=== PATIENT | female | born 1985 | race Caucasian/White ===

== ENCOUNTER → 2018-10-30 11:39 | Outpatient (CLI) | payer OTHER, SELFPAY ==
[2018-10-30 12:10] LABS: Appearance Urine UA CLEAR; Bilirubin Urine UA NEGATIVE (NEGATIVE); Color Urine UA YELLOW; Glucose Urine UA NEGATIVE (Negative); Ketones Urine UA NEGATIVE (NEGATIVE); Leukocyte Esterase Urine UA NEGATIVE (NEGATIVE); Nitrite Urine UA NEGATIVE (Negative); Occult Blood Urine UA NEGATIVE (Negative); Protein Urine UA NEGATIVE (Negative); Urobilinogen Urine UA 0.2 E.U./dL (0.2); pH Urine UA 5.5 (4.5-8.0)
[2018-10-30 12:22] LABS: Add Manual Diff / Slide Review NO; Basophils Absolute Auto 0 /uL (0-100); Basophils Percent Auto 0.3 % (0-2); Eosinophils Absolute Auto 200 /uL (0-450); Eosinophils Percent Auto 1.4 % (2-4); Hematocrit 39.3 % (36-46); Hemoglobin 13.7 g/dL (12.0-16.0); Lymphocytes Absolute Auto 2100 /uL (1100-4500); Lymphocytes Percent Auto 18.4 % (25-40); Mean Corpuscular HGB Conc 34.8 % (30-36); Mean Corpuscular Hemoglobin 31.7 PG (26-34); Mean Corpuscular Volume 90.9 fL (80-100); Monocytes Absolute Auto 800 /uL (0-900); Monocytes Percent Auto 6.7 % (3-14); Neutrophils Absolute Auto 8500 /uL (1500-7000); Neutrophils Percent Auto 73.2 % (50-75); Platelet Count 345 X10^3/uL (150-400); Red Blood Cell Count 4.32 X10^6/uL (4.0-5.2); Red Cell Distribution Width 12.3 % (11.6-14.8); White Blood Cell Count 11.7 X10^3/uL (4.5-11.0)
[2018-10-30 15:58] LABS: Hepatitis B Surface Antigen NEGATIVE s/c (NEGATIVE); Rubella Antibody IgG 22.1 IU/mL (>15)
[2018-10-30 16:28] LABS: HIV 1 & 2 Ab/Ag 4th Gen Combo NEGATIVE (NEGATIVE); Hep C Virus Ab w/Reflex Quant NEGATIVE s/c (NEGATIVE)
[2018-11-17 11:49] LABS: RPR Screen NONREACTIVE
== END ==
PROVIDERS: Visit Provider Specialist
DX: Z34.90 Encounter for supervision of normal pregnancy, unspecified, unspecified trimester (principal)
CPT/HCPCS: 36415; 80055; 81003; 86787; 86803; 86850; 86900; 86901; 87086; 87389

== ENCOUNTER → 2018-11-06 16:46 | Outpatient (CLI) | payer OTHER, SELFPAY ==
[2018-11-06 20:03] LABS: Urine N gonorrhoeae NOT DETECTED
[2018-11-06 20:17] LABS: Urine Chlamydia NOT DETECTED
== END ==
PROVIDERS: Visit Provider Specialist
DX: Z11.3 Encounter for screening for infections with a predominantly sexual mode of transmission (principal); Z3A.08 8 weeks gestation of pregnancy
CPT/HCPCS: 87491; 87591

== ENCOUNTER → 2018-12-07 10:46 | Outpatient (CLI) | payer OTHER, SELFPAY ==
[2018-12-13 12:40] LABS: AFP, Serum 55.9 ng/mL; Calc Gestational Age 16.7; Cigarette Smoker NO; Donated Egg N; Donor Egg Age NOT GIVEN; Estriol, Free 0.61 ng/mL; Inhibin A, Dimeric 120 pg/mL; Maternal Weight 174 lbs; Number of Fetuses 1; Previous Pregnancy Down Syndro N; hCG, MoM 0.73; hCG, Serum 19.9 IU/mL
== END ==
PROVIDERS: Visit Provider Specialist
DX: Z34.02 Encounter for supervision of normal first pregnancy, second trimester (principal); Z3A.16 16 weeks gestation of pregnancy
CPT/HCPCS: 36415; 82105; 82677; 84702; 86336

== ENCOUNTER → 2019-01-04 08:46 | Outpatient (CLI) | payer OTHER, SELFPAY ==
--- NOTE | 2019-01-04 08:48 | DI.US.S_ITS ---
PROCEDURE: US OB >= 14 WEEKS FETUS INDICATIONS: ANATOMY SCAN OUTSIDE/PRIOR DATING DATA: First dating scan (date and location): 11/06/18. Estimated date of delivery (LAURYN) from first dating scan: 05/23/19. TECHNIQUE: Real-time scanning was performed of the fetus, with image documentation and biometric measurements. Endovaginal scanning: No COMPARISON: None. FINDINGS: General: A single living intrauterine gestation is present. Presentation: Transverse. Placenta: Placental position is anterior, and low lying with the inferior margin 9 mm above the internal cervical os Amniotic fluid index: 12.0 cm, normal range is 5-24 cm. heart rate: 153 beats per minute. Maternal cervical canal: 3.1 cm long. Normal lower limit is 2.5 cm. biometrics: Biparietal diameter: 20 Head circumference: 21 weeks 0 days Abdominal circumference: 20 weeks 1 day Femur length: 21 weeks 1 day Estimated gestational age from initial scan: 20 weeks 1 day Composite gestational age from present scan: 20 weeks 4 days Estimated weight and percentile: 365 g; 72nd percentile Measurement variability for biometric dating: +/- 7 days from 14 weeks to 15 weeks 6 days gestation, +/- 10 days from 16 weeks to 21 weeks 6 days gestation, +/- 2 weeks from 22 weeks to 27 weeks 6 days gestation, +/- 3 weeks for 28 weeks gestation or later. weight reference: 4500 g or EFW >90/95% is considered macrosomia or large for gestational age. EFW <10% is small for gestational age. EFW 5% or less is considered intra-uterine growth restriction. Anatomic survey: Neuro: Ventricles are non-dilated at less than 10 mm. Cisterna magna is normal at 3-11 mm. Cerebellum is normal in size and morphology. Nuchal skin fold: Normal at less than 6 mm between 14-21 weeks gestational age. Face: Nose and lips, facial profile are normal. Spine: Not well-visualized. Heart: 4-chambered heart is present, with normal ventricular outflow tracts. Diaphragm: Diaphragm is intact. Stomach: Left-sided stomach is present. Kidneys: No hydronephrosis. Normal is less than 5 mm in 2nd trimester, less than 7 mm in 3rd trimester. Cord: 3-vessel cord has orthotopic insertion. Bladder: Normal in size. Extremities: All 4 extremities identified. IMPRESSION: 1. Single living IUP redemonstrated and interval growth is normal. 2. spine not well visualized; otherwise normal anatomy. 3. Low lying placenta. Followup recommended. Dictated by: John PEDROZA Interpreted: Migdalia Harden MD on 01/04/2019 at 10:41 Approved by: Migdalia Harden MD, PhD on 01/04/2019 at 11:36
== END ==
PROVIDERS: Visit Provider Specialist
DX: Z34.02 Encounter for supervision of normal first pregnancy, second trimester (principal); Z3A.20 20 weeks gestation of pregnancy
CPT/HCPCS: 76811

== ENCOUNTER → 2019-01-13 07:43 | Outpatient (CLI) | payer OTHER, SELFPAY ==
--- NOTE | 2019-01-13 07:47 | DI.US.S_ITS ---
PROCEDURE: US OB FOLLOW UP INDICATIONS: RE-EVALUATE SPINE OUTSIDE/PRIOR DATING DATA: First dating scan (date and location): 11/06/18. Estimated date of delivery (LAURYN) from first dating scan: 05/23/19. TECHNIQUE: Real-time scanning was performed of the fetus, with image documentation and biometric measurements. Endovaginal scanning: No COMPARISON: [facility], , OB >= 14 WEEKS FETUS, 01/04/2019, 9:06. FINDINGS: General: A single living intrauterine gestation is present. Presentation: Breech. Placenta: Placental position is anterior, and low lying with the inferior margin of the placenta approximately 1.4 cm above the internal cervical os. Amniotic fluid index: 14.3 cm, normal range is 5-24 cm. heart rate: 139 beats per minute. Maternal cervical canal: 3.3 cm long. Normal lower limit is 2.5 cm. Normal spine. IMPRESSION: 1. Single living IUP redemonstrated and the spine appears normal on today's examination. 2. Low lying placenta. Followup recommended. Dictated by: John Nina [facility] Interpreted: Vito Zheng MD on 01/13/2019 at 9:33 Approved by: Vito Zheng M.D. on 01/13/2019 at 15:38
== END ==
PROVIDERS: Visit Provider Specialist
DX: O44.42 Low lying placenta NOS or without hemorrhage, second trimester (principal); Z3A.20 20 weeks gestation of pregnancy
CPT/HCPCS: 76816

== ENCOUNTER → 2019-02-02 09:22 | Outpatient (CLI) | payer OTHER, SELFPAY ==
[2019-02-02 11:40] LABS: GTT (PREG) 1 Hour PP 50gm Dose 154 mg/dL (76-139)
[2019-02-02 11:46] LABS: Hematocrit 35.5 % (36-46); Hemoglobin 12.2 g/dL (12.0-16.0)
== END ==
PROVIDERS: Visit Provider Specialist
DX: O26.899 Other specified pregnancy related conditions, unspecified trimester (principal); Z34.02 Encounter for supervision of normal first pregnancy, second trimester; Z67.91 Unspecified blood type, Rh negative
CPT/HCPCS: 36415; 82950; 85014; 85018; 86850

== ENCOUNTER → 2019-02-05 07:19 | Outpatient (CLI) | payer OTHER, SELFPAY ==
[2019-02-05 09:00] LABS: Glucose Fasting Gestational 80 mg/dL (76-95)
[2019-02-05 09:26] LABS: Glucose 1 Hour Gest 174 mg/dL (76-180)
[2019-02-05 10:36] LABS: Glucose Tol Interp,Gestational INTERPRETATION
[2019-02-05 10:55] LABS: Glucose 2 Hour Gest 147 mg/dL (76-155)
[2019-02-05 11:33] LABS: Glucose 3 Hour Gest 126 mg/dL (76-140)
== END ==
PROVIDERS: Visit Provider Specialist
DX: Z34.92 Encounter for supervision of normal pregnancy, unspecified, second trimester (principal); R73.09 Other abnormal glucose
CPT/HCPCS: 36415; 82951; 82952

== ENCOUNTER 2019-04-08 00:12 | Inpatient (IN) | payer OTHER, SELFPAY ==
--- NOTE | 2019-04-08 00:47 | PM.OBHP.1 ---
OB HPI History of Present Condition Chief complaint: evaluation of labor Narrative: Betina Mendiola is a 33 year old female @ [id number] by LMP and early US who presents w/ PPROM. +FM. feeling uncomfortable cramping. No VB. Large gushes of fluid has been clear. Routine PN care w/ Dr.Nadine Barrett. Evaluation Evaluation Baseline heart rate: 140 Variability: Moderate (11-25) monitor accelerations: Present monitor decelerations: Absent Contraction Frequency (minutes): 3 Uterine Contraction Intensity: Mild Category of Tracing: I Cervical dilation (cm): 1 Cervical effacement (%): 80 station: -3 Laboratory results: AmniSure positive Non-invasive Membranes Rupture Test: positive [facility] Medical History Abnormal Pap smear of cervix (Inactive ~2004) Human papilloma virus (Inactive ~2004) Surgical History Anesthesia (Resolved) H/O LEEP (Resolved ~2007) History of myringotomy (Resolved ~1994) History of surgery (Resolved ~1996) [place] teeth removed (Resolved ~2003) Meds Home Medications and Allergies Allergies Allergy/AdvReac Type Severity Reaction Status Date / Time Sulfa (Sulfonamide Allergy Intermediate rash in Verified 04/08/19 01:15 Antibiotics) childhood Review of Systems Review of Systems ROS Unobtainable: All systems reviewed & are unremarkable except as noted in HPI and below Exam Vital Signs (past 8 hours): BP-128/82 HR-76, T36.2 Narrative Exam Narrative: Calm respirations, no change in breathing or facial expressions with contractions. External Female Exam: external appearance normal OB/External & Speculum: deferred Manual OB Exam: dilated 1, effaced 75% and station high Presentation: vertex Amniotic Fluid: clear Assessment and Plan Assessment and Plan Assessment and Plan narrative: Admit for PPROM and transfer to [facility]. Counseled patient and her on recommendation for transfer to facility with NICU capability. Routine admit orders w/ antibioitcs, betamethasone and MgSO4 for neuroprotection, approved by . Will give PCN as it is ready on the unit and amp/erythromycin would likely not arrive from pharmacy prior to transfer. associate account director Shivani and OB Hospitalist called and accepted transfer of care. Ambulance dispatch has been called w/ STAT transfer requested, as [facility] ETA to arrival here is >1.5 hours, will arrange air transport through [facility]. Time Spent with Patient Total time spent with greater than 50% in coordination of care (as documented) at patient's floor/unit and/or counseling patient:: 25 - 35 minutes
[2019-04-08] MEDS: PENICILLIN G POTASSIUM 5,000,000 UNIT in DEXTROSE 5% IN WATER 250 ML IV (01:19)
[2019-04-08] MEDS: LACTATED RINGERS 1,000 ML 150 ML IV (01:20)
[2019-04-08] MEDS: BETAMETHASONE 30 MG/5 ML MDV 12 MG IM (01:20)
[2019-04-08] MEDS: MAGNESIUM SULFATE 4 GM/100 ML PIGGYBACK IV (01:36)
[2019-04-08 01:40] LABS: Add Manual Diff / Slide Review NO; Basophils Absolute Auto 100 /uL (0-100); Basophils Percent Auto 0.4 % (0-2); Eosinophils Absolute Auto 200 /uL (0-450); Eosinophils Percent Auto 1.2 % (2-4); Hematocrit 35.2 % (36-46); Hemoglobin 12.4 g/dL (12.0-16.0); Lymphocytes Absolute Auto 3300 /uL (1100-4500); Lymphocytes Percent Auto 17.5 % (25-40); Mean Corpuscular HGB Conc 35.2 % (30-36); Mean Corpuscular Hemoglobin 31.7 PG (26-34); Mean Corpuscular Volume 90.1 fL (80-100); Monocytes Absolute Auto 1400 /uL (0-900); Monocytes Percent Auto 7.5 % (3-14); Neutrophils Absolute Auto 13800 /uL (1500-7000); Neutrophils Percent Auto 73.4 % (50-75); Platelet Count 378 X10^3/uL (150-400); Red Cell Distribution Width 12.3 % (11.6-14.8); White Blood Cell Count 18.8 X10^3/uL (4.5-11.0)
[2019-04-08 01:49] LABS: Strep Grp B PCR NEG for Grp B Strep
[2019-04-08] MEDS: MAGNESIUM SULFATE 20 GM/500 ML IV.SOLN IV (02:00)
[2019-04-08] MEDS: AZITHROMYCIN 250 MG TABLET 1000 MG PO (02:56)
--- NOTE | 2019-04-08 03:16 | PM.OBDS.1 ---
Discharge Providers Provider Date of admission: 04/08/19 00:12 Discharge Date: 04/08/19 Discharge provider: Kelle Humphrey CNM Summary Hospital Course Date Patient Seen: 04/08/19 Time Patient Seen: 03:18 Hospital Course: PPROM, clear fluid, was confirmed and patient was admitted, IV and labs (Rapid GBS, CBC, T&S) completed, antibiotics, betamethasone and MgSO4 were given. CE 1.5/-3. [facility] accepted transfer of care () and transport was called. Initially, ground transport was estimated at 1.5 hours so air transport was requested and denied for weather. Request for ground transport was then completed. Pt has been able to rest, but not sleep, reporting occasional uncomfortable contractions, not breathing through them yet. Repeat CE at time of ground transport arrival 1./-2. direct support specialist Shelly @ [facility] was notified of ETA and bed 303 was assigned. Meds: IV PCN 5million units, PO azithrymycin 1g, betamethasone 12mg IM, MgSO4 4gram load then 2grams continuous Discharge Diagnosis (1) premature rupture of membranes (PPROM) delivered, current hospitalization: Start Date: 04/07/19 Start Time: 23:30 Status: Acute (2) 33 weeks gestation of : Start Date: 04/08/19 Status: Acute Status at Discharge Cognitive/behavioral status at discharge: oriented Functional status at discharge: independent ambulation (recommend minimal ambulation w/ Medical staff in attendance) Overall status at discharge: patient is progressing back to baseline Time Spent with Patient Time attestation: Total time spent providing and/or coordinating discharge services: Time spent: Greater than 30 minutes Objective Labs Result Diagrams: 04/08/19 00:50 Labs: Laboratory Results - last 24 hr 04/08/19 04/08/19 04/08/19 00:40 00:50 00:50 WBC 18.8 H RBC 3.90 L Hgb 12.4 Hct 35.2 L MCV 90.1 MCH 31.7 MCHC 35.2 RDW 12.3 Plt Count 378 Neut % (Auto) 73.4 Lymph % (Auto) 17.5 L [place] % (Auto) 7.5 Eos % (Auto) 1.2 L Baso % (Auto) 0.4 Neut # (Auto) 54444 H Lymph # (Auto) 3300 [place] # (Auto) 1400 H Eos # (Auto) 200 Baso # (Auto) 100 Group B Strep (PCR) Neg for grp b strep Blood Type AB Negative Antibody Screen Positive Antibody Identification Anti-D Exam Vital Signs (past 8 hours): BP 117/56, HR69, T36.6C, SpO2-100% Const General: cooperative Nutritional Appearance: average body habitus and well nourished Orientation: alert, awake and oriented x3 Resp Effort & Inspection: normal respiratory effort Manual OB Exam: dilated (1.5cm), effaced (90%), station -2 and other Presentation: vertex Amniotic Fluid: clear Discharge Plan Discharge Plan Disposition: [facility] Hospital Discharge Data Attending Provider: Leisa Barrett Admit Date/Time: 04/08/19 00:12
== END 2019-04-08 03:25 | disposition short-term general hospital (02) | DRG 833 ==
PROVIDERS: Nurse Practitioner Obstetrics & Gynecology; Admitting Provider Specialist; Visit Provider Specialist
DX: O42.013 Preterm premature rupture of membranes, onset of labor within 24 hours of rupture, third trimester (principal); Z3A.33 33 weeks gestation of pregnancy
CPT/HCPCS: 59025; 59050; 84112; 85025; 86850; 86870; 86900; 86901; 87081; 87653; 96360; 96372; G0378; G0379; J0702; J2540; J3475

== ENCOUNTER → 2020-06-09 12:15 | Outpatient (CLI) | payer OTHER, SELFPAY ==
[2020-06-09] MEDS: COVID-19 VACC #1, MRNA(MOD) 100 MCG/0.5 ML VIAL IM (12:24)
== END ==
PROVIDERS: Visit Provider Internal Medicine
DX: Z23 Encounter for immunization (principal)
CPT/HCPCS: 0011A; 91301

== ENCOUNTER → 2020-07-11 10:27 | Outpatient (CLI) | payer OTHER, SELFPAY ==
[2020-07-11 11:13] LABS: Add Manual Diff / Slide Review NO; Basophils Absolute Auto 0 /uL (0-100); Basophils Percent Auto 0.4 % (0-2); Eosinophils Absolute Auto 200 /uL (0-450); Eosinophils Percent Auto 2.3 % (2-4); Hematocrit 38.5 % (36-46); Hemoglobin 13.6 g/dL (12.0-16.0); Lymphocytes Absolute Auto 2000 /uL (1100-4500); Mean Corpuscular HGB Conc 35.3 % (30-36); Mean Corpuscular Hemoglobin 32.5 PG (26-34); Mean Corpuscular Volume 92.1 fL (80-100); Monocytes Absolute Auto 700 /uL (0-900); Monocytes Percent Auto 7.7 % (3-14); Neutrophils Absolute Auto 5700 /uL (1500-7000); Neutrophils Percent Auto 66.6 % (50-75); Platelet Count 289 X10^3/uL (150-400); Red Blood Cell Count 4.18 X10^6/uL (4.0-5.2); Red Cell Distribution Width 12.6 % (11.6-14.8); White Blood Cell Count 8.5 X10^3/uL (4.5-11.0)
[2020-07-11 11:26] LABS: Hemoglobin A1C% w Est Avg Glu 4.7 % (4.0-6.0)
[2020-07-11 11:28] LABS: Appearance Urine UA CLEAR; Bilirubin Urine UA NEGATIVE (NEGATIVE); Color Urine UA YELLOW; Glucose Urine UA NEGATIVE (Negative); Ketones Urine UA NEGATIVE (NEGATIVE); Leukocyte Esterase Urine UA NEGATIVE (NEGATIVE); Nitrite Urine UA NEGATIVE (Negative); Occult Blood Urine UA NEGATIVE (Negative); Protein Urine UA NEGATIVE (Negative); Specific Gravity Urine UA 1.025 (1.000-1.035); Urobilinogen Urine UA 0.2 E.U./dL (0.2)
[2020-07-11 12:25] LABS: Hepatitis B Surface Antigen NEGATIVE s/c (NEGATIVE); Rubella Antibody IgG 14.7 IU/mL (>15)
[2020-07-11 12:50] LABS: HIV 1 & 2 Ab/Ag 4th Gen Combo NEGATIVE (NEGATIVE); Hep C Virus Ab w/Reflex Quant NEGATIVE s/c (NEGATIVE)
[2020-07-12 06:35] LABS: RPR Screen Non Reactive (Non Reactive)
[2020-07-12 10:48] LABS: Varicella IgG Antibody 1366 index (Immune >165)
== END ==
PROVIDERS: Referring Provider Specialist; Visit Provider Specialist
DX: Z34.81 Encounter for supervision of other normal pregnancy, first trimester (principal)
CPT/HCPCS: 36415; 80055; 81003; 83036; 86787; 86803; 86850; 86900; 86901; 87086; 87389

== ENCOUNTER → 2020-07-12 11:59 | Outpatient (CLI) | payer OTHER, SELFPAY ==
[2020-07-12] MEDS: COVID-19 VACC #2, MRNA(MOD) 100 MCG/0.5 ML VIAL IM (12:06)
== END ==
PROVIDERS: Visit Provider Internal Medicine
DX: Z23 Encounter for immunization (principal)
CPT/HCPCS: 0012A; 91301

== ENCOUNTER → 2020-10-11 09:15 | Outpatient (CLI) | payer OTHER, SELFPAY ==
--- NOTE | 2020-10-11 09:16 | DI.US.S_ITS ---
PROCEDURE: US OB >= 14 WEEKS FETUS INDICATIONS: ANATOMY OUTSIDE/PRIOR DATING DATA: First dating scan (date and location): 08/08/2020 . Estimated date of delivery (LAURYN) from first dating scan: 02/19/2021 . TECHNIQUE: Real-time scanning was performed of the fetus, with image documentation and biometric measurements. Endovaginal scanning: No COMPARISON: [facility], OB <= 14 WEEKS FETUS, 08/08/2020, 10:21. [facility], OB >= 14 WEEKS FETUS, 03/08/2019, 9:28. FINDINGS: General: A single living intrauterine gestation is present. Presentation: Vertex. Placenta: Placental position is anterior , without previa. Amniotic fluid index: 16.7 cm, normal range is 5-24 cm. heart rate: 162 beats per minute. Maternal cervical canal: 4.3 cm long. Normal lower limit is 2.5 cm. biometrics: Biparietal diameter: 21 weeks 4 days Head circumference: 21 weeks 1 day Abdominal circumference: 22 weeks 3 days Femur length: 21 weeks 1 day Estimated gestational age from initial scan: 21 weeks 2 days Composite gestational age from present scan: 21 weeks 4 days Estimated weight and percentile: 446 g; 68th percentile Measurement variability for biometric dating: +/- 7 days from 14 weeks to 15 weeks 6 days gestation, +/- 10 days from 16 weeks to 21 weeks 6 days gestation, +/- 2 weeks from 22 weeks to 27 weeks 6 days gestation, +/- 3 weeks for 28 weeks gestation or later. weight reference: 4500 g or EFW >90/95% is considered macrosomia or large for gestational age. EFW <10% is small for gestational age. EFW 5% or less is considered intra-uterine growth restriction. Anatomic survey: Neuro: Ventricles are non-dilated at less than 10 mm. Cisterna magna is normal at 3-11 mm. Cerebellum is normal in size and morphology. Nuchal skin fold: Normal at less than 6 mm between 14-21 weeks gestational age. Face: Nose and lips, facial profile are normal. Spine: No evidence for spina bifida. Heart: 4-chambered heart is present, with normal ventricular outflow tracts. Diaphragm: Diaphragm is intact. Stomach: Left-sided stomach is present. Kidneys: No hydronephrosis. Normal is less than 5 mm in 2nd trimester, less than 7 mm in 3rd trimester. Cord: 3-vessel cord has orthotopic insertion. Bladder: Normal in size. Extremities: All 4 extremities identified. IMPRESSION: 1. Single living IUP redemonstrated and interval growth is normal. 2. Normal anatomic survey. Dictated by: John PEDROZA Interpreted: Cory Nevarez MD on 10/11/2020 at 10:30 Transcribed by: JESUS on 10/11/2020 at 10:32 Approved by: Cory Nevarez M.D. on 10/11/2020 at 11:20
== END ==
PROVIDERS: Referring Provider Specialist; Visit Provider Specialist
DX: Z34.82 Encounter for supervision of other normal pregnancy, second trimester (principal); Z3A.21 21 weeks gestation of pregnancy
CPT/HCPCS: 76811; 76817

== ENCOUNTER → 2020-11-21 07:55 | Outpatient (CLI) | payer OTHER, SELFPAY ==
[2020-11-21 09:46] LABS: Hematocrit 37.1 % (36-46); Hemoglobin 12.7 g/dL (12.0-16.0)
[2020-11-21 10:46] LABS: GTT (PREG) 1 Hour PP 50gm Dose 84 mg/dL (76-139)
== END ==
PROVIDERS: Referring Provider Specialist; Visit Provider Specialist
DX: O26.899 Other specified pregnancy related conditions, unspecified trimester (principal); Z67.91 Unspecified blood type, Rh negative; Z3A.26 26 weeks gestation of pregnancy
CPT/HCPCS: 36415; 82950; 85014; 85018; 86850

== ENCOUNTER 2021-01-30 13:37 | Outpatient (CLI) | payer OTHER, SELFPAY ==
--- NOTE | 2021-01-30 15:07 | PM.OBTRLD ---
Visit Information Visit Information Date of evaluation: 01/30/21 Primary OB Provider: Leisa Barrett Reason for Evaluation: Yes rupture of membranes Vital Signs Vital Signs: Blood pressure 110/68, pulse 80, temperature 96.4? [facility] Medical History (Updated 01/30/21 @ 15:09 by Leisa Barrett MD) Abnormal Pap smear of cervix (~2004) Bronchitis (~2010) Human papilloma virus (~2004) Pneumonia (~2010) premature rupture of membranes (PPROM) delivered, current hospitalization (04/10/19) UTI (urinary tract infection) (~2009) Surgical History (Updated 06/29/20 @ 09:20 by Edith Stauffer RN) Anesthesia H/O LEEP (~2004) History of myringotomy (~1994) History of surgery (~1996) [place] teeth removed (~2003) Family History (Updated 06/29/20 @ 15:07 by Edith Stauffer RN) Mother Asthma Hyperlipidemia Father Diabetes mellitus Dementia Depression Bipolar 1 disorder Anxiety Grandmother Dementia Neuropathy, lower extremity Grandfather S/P triple vessel bypass Hypertension Hyperlipidemia Grandmother Alzheimer's disease Grandfather No problems noted. Social History marital status: number of children: 1 household members: spouse and children lives independently: Yes caregiver/support person: No housing: house pets and animals: Yes (2 dogs: safe & aware. ) education level: college (Bachelor's pre-Nursing. 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 ) do you feel safe at home: Yes Smoking Status: Former smoker quit status: has quit before second hand exposure: No alcohol intake: former (Pre-: occasional/social ) substance use type: does not use during the past year weight has: remained stable well-balanced diet: daily or most days daily servings fruits/ve-4 caffeine: Yes (Occasionally 1 cup of coffee every 2-3 weeks. ) Type(s) of exercise: regular exercise (Does zoom exercises with friends. ) and running (Does a 5K on her glider a couple times a week. ) frequency: 5-6 times per week duration: 30-45 minutes/day Review of Systems Review of Systems Narrative: Patient with no contractions but concern for possible rupture membranes with constant wetness feeling. Good movement. ROS: Yes All systems reviewed with the patient and are negative except as otherwise documented Evaluation Evaluation Baseline heart rate: 120 Variability: Moderate (11-25) monitor accelerations: Present Monitor Decelerations: Absent Contraction Frequency (minutes): 0 Category of Tracing: Reactive Status: Category l Non-invasive Membranes Rupture Test: negative Diagnosis, Plan/Disposition Final Diagnosis (1) False labor before 37 completed weeks of gestation during in third trimester, antepartum: Status: Acute (2) 36 weeks gestation of : Status: Acute Plan/Disposition Plan: Patient with negative testing for rupture membranes. No contractions. Patient reassured. Keep her routine OB appointment. OB Disposition: home
== END 2021-01-30 15:09 | disposition home or self-care (01) ==
LOC: LABOR 14:23 → OB 01-31 07:12
PROVIDERS: PCP Specialist; Referring Provider Specialist; Visit Provider Specialist
DX: Z03.71 Encounter for suspected problem with amniotic cavity and membrane ruled out (principal); O47.03 False labor before 37 completed weeks of gestation, third trimester; Z3A.36 36 weeks gestation of pregnancy
CPT/HCPCS: 59025; 84112; G0378; G0379

== ENCOUNTER → 2021-02-06 14:38 | Outpatient (CLI) | payer OTHER, SELFPAY ==
[2021-02-08 09:00] LABS: Strep Grp B PCR NEG for Grp B Strep
== END ==
PROVIDERS: PCP Specialist; Referring Provider Specialist; Visit Provider Specialist
DX: Z34.83 Encounter for supervision of other normal pregnancy, third trimester (principal); Z3A.37 37 weeks gestation of pregnancy
CPT/HCPCS: 87653

== ENCOUNTER 2021-02-19 05:24 | Inpatient (IN) | payer OTHER, SELFPAY ==
[2021-02-19 06:30] VITALS: BP 104/55
[2021-02-19 06:40] LABS: Add Manual Diff / Slide Review NO; Basophils Absolute Auto 100 /uL (0-100); Basophils Percent Auto 0.4 % (0-2); Eosinophils Absolute Auto 100 /uL (0-450); Hematocrit 40.1 % (36-46); Hemoglobin 13.8 g/dL (12.0-16.0); Lymphocytes Absolute Auto 2700 /uL (1100-4500); Lymphocytes Percent Auto 19.1 % (25-40); Mean Corpuscular HGB Conc 34.3 % (30-36); Mean Corpuscular Hemoglobin 30.3 PG (26-34); Mean Corpuscular Volume 88.3 fL (80-100); Monocytes Absolute Auto 1000 /uL (0-900); Neutrophils Absolute Auto 10100 /uL (1500-7000); Neutrophils Percent Auto 72.5 % (50-75); Platelet Count 354 X10^3/uL (150-400); Red Blood Cell Count 4.54 X10^6/uL (4.0-5.2); Red Cell Distribution Width 13.1 % (11.6-14.8)
[2021-02-19 08:08] LABS: COVID19 -Nasal RAPID Negative (Negative)
--- NOTE | 2021-02-19 09:41 | P.HPOB_ITS ---
OB HPI Date/Time Date of admission: 02/19/21 Date Patient Seen: 02/19/21 Time Patient Seen: 09:41 History of Present Condition Chief complaint: OBS : 2 Para: 1 Estimated Date of Delivery: 02/26/21 Estimated Gestational Age (weeks): 39 Narrative: Betina Mendiola is a 35 year old female admitted in active labor History of Present care: good care, initiated at week # (7), number of visits (11) and pounds weight gain (26) Dating criteria: LMP confirmed by 1st trimester US Ultrasounds: normal mid trimester US Obstetrical complications: none Medical complications: none Preadmission Labs Blood type: AB (-) negative -: Antibody screen: negative, GBS status: negative, HBsAG: negative, HIV: negative and RPR/VDLR: negative -: Chlamydia screen: not detected and Gonorrhea screen: not detected -: Rubella: not immune and Varicella: immune HCAB: negative Quad screen: Normal 1 hr GTT: 84 Prior (ies) History: 04/10/2019 pprom with delivery at 33.6 weeks 5 lb 10 oz female Evaluation Evaluation Baseline heart rate: 130 Variability: Moderate (11-25) monitor accelerations: Present Monitor Decelerations: Absent Uterine Contraction Intensity: Mild Category of Tracing: Reactive Status: Category l Dilation (cm): 10 Effacement (%): 100 station: 0 PFSH Medical History (Updated 02/06/21 @ 12:16 by Leisa Barrett MD) Abnormal Pap smear of cervix (~2004) Bronchitis (~2010) Human papilloma virus (~2004) Pneumonia (~2010) premature rupture of membranes (PPROM) delivered, current hospitalization (04/10/19) UTI (urinary tract infection) (~2009) Surgical History (Updated 06/29/20 @ 09:20 by Edith Stauffer RN) Anesthesia H/O LEEP (~2004) History of myringotomy (~1994) History of surgery (~1996) [place] teeth removed (~2003) Family History (Updated 06/29/20 @ 15:07 by Edith Stauffer RN) Mother Asthma Hyperlipidemia Father Diabetes mellitus Dementia Depression Bipolar 1 disorder Anxiety Grandmother Dementia Neuropathy, lower extremity Grandfather S/P triple vessel bypass Hypertension Hyperlipidemia Grandmother Alzheimer's disease Grandfather No problems noted. Social History marital status: number of children: 1 household members: spouse and children lives independently: Yes caregiver/support person: No housing: house pets and animals: Yes (2 dogs: safe & aware. ) education level: college (Bachelor's pre-Nursing. 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 ) do you feel safe at home: Yes Smoking Status: Former smoker quit status: has quit before second hand exposure: No alcohol intake: former (Pre-: occasional/social ) substance use type: does not use during the past year weight has: remained stable well-balanced diet: daily or most days daily servings fruits/ve-4 caffeine: Yes (Occasionally 1 cup of coffee every 2-3 weeks. ) Type(s) of exercise: regular exercise (Does zoom exercises with friends. ) and running (Does a 5K on her glider a couple times a week. ) frequency: 5-6 times per week duration: 30-45 minutes/day Meds Home Medications and Allergies Home Medications Medication Instructions Recorded Confirmed Type prenat.vits,kane,jtq-[id number] 1 tab PO DAILY 05/17/19 02/19/21 History ondansetron 4 mg disintegrating 4 mg PO Q6H PRN #20 tab 07/10/20 02/19/21 Rx tablet omeprazole 40 mg capsule,delayed 40 mg PO DAILY #30 cap 11/16/20 02/19/21 Rx release Allergies Allergy/AdvReac Type Severity Reaction Status Date / Time annalise Allergy Intermediate Itchy Verified 06/29/20 09:06 throat & tongue goes numb Sulfa (Sulfonamide Allergy Intermediate rash in Verified 06/29/20 09:06 Antibiotics) childhood tree and shrub pollen Allergy Intermediate Itchy Verified 06/29/20 09:06 eyes, runny nose, sneezing Review of Systems Review of Systems Narrative: Patient denies headaches, scotomata, epigastric pain. She had rupture of membranes shortly after arrival Labor and delivery about 6:30 a.m. OB Exam Narrative Exam Narrative: Blood pressure 104/55, pulse of 54, temperature 96.3? Objective Labs Result Diagrams: 02/19/21 05:30 Labs: Laboratory Results - last 24 hr 02/19/21 02/19/21 02/19/21 05:30 05:30 05:45 WBC 14.0 H RBC 4.54 Hgb 13.8 Hct 40.1 MCV 88.3 MCH 30.3 MCHC 34.3 RDW 13.1 Plt Count 354 Neut % (Auto) 72.5 Lymph % (Auto) 19.1 L [place] % (Auto) 7.0 Eos % (Auto) 1.0 L Baso % (Auto) 0.4 Neut # (Auto) 99976 H Lymph # (Auto) 2700 [place] # (Auto) 1000 H Eos # (Auto) 100 Baso # (Auto) 100 SARS-CoV-2 (PCR) Negative Blood Type AB Negative Antibody Screen Negative Assessment and Plan Assessment and Plan Assessment and Plan narrative: 39 week gestation in active labor. Patient received an epidural catheter for pain control. Anticipate vaginal delivery.
--- NOTE | 2021-02-19 11:33 | PM.OBPRVD ---
Labor & Delivery Delivery date: 02/19/21 Cervical ripening method: none Induction method: none Delivery monitor: external FHT and external uterine Route of delivery: L&D Laceration Description: Perineal - 2nd Degree Delivery repair: chromic (3 0) Estimated blood loss (mL): 150 Anesthesia Type: Epidural Narrative: Patient arrived on Labor and delivery in active labor. She received an epidural catheter for pain control. She progressed normally to complete pushing. With pushing heart tones had intermittent variables that responded to position change, O2, IV fluid bolus. The baby delivered spontaneously, over an intact perineum. A nuchal cord was released. The viable male was placed on maternal abdomen. After cord stopped pulsating the cord was clamped, cut, and cord bloods obtained. The placenta delivered spontaneously, intact, 3 vessels. There were no cervical or vaginal tears. A second-degree vaginal tear was repaired with 3 0 chromic suture in the usual 2 layer fashion. Both infant and mother doing well. Baby 1: gender: Male Presentation: vertex Position: Right Occiput Anterior Placenta delivery description: Spontaneous Cord Vessel Description: Nuchal Cord score (1 min): 9 score (5 min): 9 Plan for aftercare: Routine care
[2021-02-19] MEDS: IBUPROFEN 600 MG TABLET PO ×2 (13:01→19:56)
[2021-02-19] MEDS: DERMOPLAST SPRAY 20% 60 ML 1 SPRAY TOP (13:02)
[2021-02-19] MEDS: ACETAMINOPHEN 325 MG TABLET 650 MG PO (14:40)
[2021-02-19] MEDS: LANOLIN OINT 7 GM 1 APPLIC TOP (19:55)
[2021-02-20] MEDS: ACETAMINOPHEN 325 MG TABLET 650 MG PO ×3 (01:36→13:25)
[2021-02-20] MEDS: IBUPROFEN 600 MG TABLET PO ×3 (01:37→13:25)
[2021-02-20 06:51] LABS: Hematocrit 34.9 % (36-46); Hemoglobin 11.7 g/dL (12.0-16.0)
[2021-02-20] MEDS: DOCUSATE 100 MG CAPSULE PO (10:13)
--- NOTE | 2021-02-20 13:01 | PM.OBDS.1 ---
Discharge Providers Provider Date of admission: 02/19/21 05:24 Discharge Date: 02/20/21 Consults: 02/19/21 06:14 Consult to Anesthesiology Urgent Comment: Consulting Provider: Anesthesiologist Reason for consultation: Epidural Has provider been notified: No 02/20/21 11:31 Consult to Brake Repair Mechanic Routine Comment: Discharge provider: Leisa Barrett MD Summary Hospital Course Date Patient Seen: 02/20/21 Time Patient Seen: 13:02 Diagnoses: Spontaneous vaginal delivery with repair of second-degree tear Hospital Course: Patient arrived on Labor and delivery in active labor. She received an epidural catheter for pain control. She delivered spontaneously and had a 2nd degree perineal repair. Peripartum Data Infant Delivery Method: Natural Vaginal Laceration Description: Perineal - 2nd Degree Procedures: Epidural catheter, spontaneous vaginal delivery, repair of second-degree tear complications: none [place] 1: Gender: Male Disposition of : home Discharge Diagnosis (1) Vaginal delivery: Status: Acute Status at Discharge Cognitive/behavioral status at discharge: oriented Functional status at discharge: independent ambulation Overall status at discharge: patient is progressing back to baseline Time Spent with Patient Time attestation: Total time spent providing and/or coordinating discharge services: Time spent: Less than 30 minutes Objective Labs Result Diagrams: 02/20/21 06:35 Labs: Laboratory Results - last 24 hr 02/20/21 02/20/21 06:35 06:35 Hgb 11.7 L Hct 34.9 L Maternal Bleed Negative Exam Vital Signs (past 8 hours): Blood pressure 116/79, pulse 77, temperature 98.5? Narrative Exam Narrative: Abdomen is soft, nontender. Uterus is firm, at U, nontender. Repair is intact. Mild lochia. Extremities without edema and nontender. Discharge Plan Discharge Plan Patient Disposition: Home Discharge orders & Medications Prescriptions: Continued prenat.vits,kane,[id number] Tablet 1 tab PO DAILY 0RF Discontinued ondansetron 4 mg tablet,disintegrating 4 mg PO Q6H PRN (Reason: nausea and vomiting) Qty: 20 0RF omeprazole 40 mg capsule,delayed release(DR/EC) 40 mg PO DAILY Qty: 30 2RF Rx Instructions: 1 cap daily for acid reflux Follow up/Referrals: Leisa Barrett MD [Physician] - 6 Weeks Diet/Activity/Treatments Diet: Regular Activity: Nothing in vagina for 6 weeks Skin/Wound/Dressing Care Report to your healthcare provider any signs of infection, such as:: chills, fever and increased pain
[2021-02-20] MEDS: RHO(D) IMMUNE GLOBULIN 1,500 UNIT SYRINGE 1500 UNIT IM (13:21)
[2021-02-20 15:52] VITALS: BP 107/69; PULSE 82; RESP 20; TEMP 37
== END 2021-02-20 17:05 | disposition home or self-care (01) | DRG 807 ==
PROVIDERS: Specialist; Admitting Provider Obstetrics & Gynecology; Referring Provider Obstetrics & Gynecology; Visit Provider Obstetrics & Gynecology
DX: O70.1 Second degree perineal laceration during delivery (principal); Z37.0 Single live birth; Z3A.39 39 weeks gestation of pregnancy; O69.81X0 Labor and delivery complicated by cord around neck, without compression, not applicable or unspecified; Z20.822 Contact with and (suspected) exposure to COVID-19
CPT/HCPCS: 01967; 36415; 59050; 59400; 85014; 85018; 85025; 85461; 86850; 86900; 86901; 87635; C9803; G0379; J2790